=== PATIENT | male | born 1970 | race Hispanic/Latino ===

== ENCOUNTER 2016-12-18 14:12 | Outpatient (CLI) | payer OTHER ==
--- NOTE | 2016-12-24 11:44 | XRay Report ---
CHEST TWO VIEWS: 12/18/16 14:12:00 CLINICAL: Cough. COMPARISON: None FINDINGS: Normal heart and pulmonary vasculature. The lungs are normally expanded and clear.Mild degenerative changes in the spine. IMPRESSION: Mild degenerative change of the spine. No acute cardiopulmonary process. No pneumonia.
== END 2016-12-18 14:13 | disposition home or self-care (01) ==
LOC: SPVIMAG 14:12
DX: R05 Cough (principal); E03.9 Hypothyroidism, unspecified; M47.894 Other spondylosis, thoracic region
CPT/HCPCS: 71020